=== PATIENT | male | born 1985 | race Caucasian/White ===

== ENCOUNTER 2016-05-31 23:52 | Emergency (ER) | payer OTHER ==
[~2016-05-31] VITALS: Ht 188 cm; Wt 90.7 kg
--- NOTE | 2016-06-01 00:02 | NUR ---
pt walked int ER c/o left foot baby toe pain, pt states he stubbed his toe... pt c/o 06/18 pain, pt alert, oriented x 4, no resp distress noted or reported upon assessment... md at bedside..
--- NOTE | 2016-06-01 01:34 | NUR ---
Patient discharged to home in stable conditon. Written and verbal after care instructions given. Patient verbalizes understanding of instructions. Per ER MD arriaga taped toes, pt walked out of ER unassisted with belongings at side...
== END 2016-06-01 01:36 | disposition home or self-care (01) ==
LOC: ER 23:55
DX: S93.505A Unspecified sprain of left lesser toe(s), initial encounter (principal); W22.8XXA Striking against or struck by other objects, initial encounter; Y93.89 Activity, other specified; Y99.8 Other external cause status; Y92.89 Other specified places as the place of occurrence of the external cause
CPT/HCPCS: 73630; A4663